=== PATIENT | male | born 1980 | race Two or more races ===

== ENCOUNTER 2021-09-12 07:47 | Day surgery (SDC) | payer OTHER ==
[~2021-09-12 07:47] MED LIST: CANABIS; NAPR500T14 PO
== END 2021-09-12 21:45 | disposition home or self-care (01) ==
LOC: CIR.AMB 07:47
PROVIDERS: ATTEND Orthopaedic Surgery Hand Surgery
DX: S62.014K Nondisplaced fracture of distal pole of navicular [scaphoid] bone of right wrist, subsequent encounter for fracture with nonunion (principal); F17.210 Nicotine dependence, cigarettes, uncomplicated; Z71.6 Tobacco abuse counseling

== ENCOUNTER 2022-09-02 08:40 | Emergency (ER) | payer OTHER ==
[~2022-09-02] VITALS: Ht 165.1 cm; Wt 83.5 kg
[2022-09-03] MEDS ORDERED: TAMS0.4C PO (12:25)
[2022-09-03] MEDS ORDERED: KETO10TA2 PO (12:25)
[2022-09-03] MEDS ORDERED: CIPRO500 MG PO (12:25)
== END 2022-09-02 15:13 | disposition home or self-care (01) ==
LOC: ER 08:40
DX: M54.89 Other dorsalgia (principal); R31.9 Hematuria, unspecified; N21.1 Calculus in urethra; N20.0 Calculus of kidney

== ENCOUNTER 2022-09-03 08:42 | Emergency (ER) | payer OTHER ==
[~2022-09-03] VITALS: Ht 167.6 cm; Wt 83.5 kg
[2022-09-03] MEDS ORDERED: TAMS0.4C PO (12:25)
[2022-09-03] MEDS ORDERED: CIPRO500 MG PO (12:25)
[2022-09-03] MEDS ORDERED: KETO10TA2 PO (12:25)
== END 2022-09-03 12:41 | disposition home or self-care (01) ==
LOC: ER 08:42
DX: N20.0 Calculus of kidney (principal)